=== PATIENT | male | born 1950 | race Caucasian/White ===

== ENCOUNTER → 2021-02-10 | Outpatient (CLI) | payer MEDICARE | LOC: PT 14:54 → EDSTATUS 14:57 | DX: S43.82XA Sprain of other specified parts of left shoulder girdle, initial encounter (principal) ==

== ENCOUNTER 2021-02-28 10:50 | Outpatient (RCR) | payer MEDICARE | END 2021-05-29 | LOC: PT | DX: Z96.612 Presence of left artificial shoulder joint (principal) ==

== ENCOUNTER 2022-09-18 10:00 | Outpatient (RCR) | payer MEDICARE | END 2022-09-27 | disposition still patient (30) | LOC: PT | DX: M25.511 Pain in right shoulder (principal); Z96.611 Presence of right artificial shoulder joint ==

== ENCOUNTER 2022-12-27 08:00 | Outpatient (RCR) | payer MEDICARE | END 2023-01-26 | disposition home or self-care (01) | LOC: PT | DX: M25.511 Pain in right shoulder (principal) ==